=== PATIENT | male | born 1995 | race Caucasian/White ===

== ENCOUNTER 2019-01-02 14:46 | Emergency (ER) | payer OTHER ==
[~2019-01-02] VITALS: Ht 180.3 cm; Wt 93.2 kg
[2019-01-02 14:47] VITALS: BP 126/63
== END 2019-01-02 15:59 | disposition home or self-care (01) ==
LOC: EMS 14:54
DX: B37.42 Candidal balanitis (principal); F17.210 Nicotine dependence, cigarettes, uncomplicated